=== PATIENT | female | born 1985 | race Two or more races ===

== ENCOUNTER 2018-04-21 06:38 | Emergency (ER) | payer MEDICAID, OTHER ==
[~2018-04-21] VITALS: Ht 160 cm; Wt 59.0 kg
[2018-04-21 06:59] VITALS: BP 109/74
[2018-04-21] MEDS ORDERED: KETOROLAC TROMETH 60MG/2ML VIAL IM ONE (07:45)
== END 2018-04-21 08:37 | disposition home or self-care (01) ==
LOC: ER 06:38
DX: S29.012A Strain of muscle and tendon of back wall of thorax, initial encounter (principal); X50.0XXA Overexertion from strenuous movement or load, initial encounter; Y93.89 Activity, other specified; Y99.8 Other external cause status; Y92.59 Other trade areas as the place of occurrence of the external cause
CPT/HCPCS: 72070; 99284; J1885